=== PATIENT | male | born 2000 | race Caucasian/White ===

== ENCOUNTER 2022-02-12 21:48 | Day surgery (SDC) | payer BC, SELFPAY ==
[2022-02-12 22:01] VITALS: BP 121/77; PULSE 79; RESP 18; TEMP 37.2; O2SAT 99; BMI 21.6
[2022-02-12 22:19] LABS: Appearance Urine Clear (Clear); Bilirubin Urine Negative (Negative); Blood Urine Negative (Negative); Color Urine Yellow (Yellow); Glucose Urine Negative (Negative); Ketones Urine Negative (Negative); Leukocyte Esterase Urine Negative (Negative); Nitrite Urine Negative (Negative); Protein Urine Negative (Negative); Urobilinogen Urine 0.2 (0.2-1.0)
--- NOTE | 2022-02-12 22:32 | ED_ITS ---
HPI - Abdominal Pain General Chief Complaint: Abdominal Pain Stated Complaint: R side abdominal pain Time Seen by Provider: 02/12/22 22:25 History of Present Illness HPI narrative: 21-year-old young man generally healthy with complaint of abdominal pain increasing over the course of the day after lunch now about 10 hours of pain. Initially began maybe just a little bit above his umbilicus and has gone now down to his right low abdomen. Transitions, walking cause pain. Nausea has i ncreased over the course of the day. Sharp pain. No fever. No vomiting. He admits this might be confirmation bais but certainly appears to be appendicitis. No family history of kidney stones. No dysuria frequency urgency. No hematuria noted. Related Data Home Medications Medication Instructions Recorded Confirmed Aklief 02/12/22 ibuprofen 02/12/22 minocycline 02/12/22 Allergies Allergy/AdvReac Type Severity Reaction Status Date / Time No Known Drug Allergies Allergy Verified 02/12/22 23:14 Review of Systems Status of ROS Reports: 10 or more systems reviewed and unremarkable except as noted in History and below PFSH PFSH Medical History Seizures Surgical History Hx of tonsillectomy Family History Mother Asthma Social History Highest level of school completed/degree received: 12th grade, no diploma Smoking Status: Never smoker Do you use any of these nicotine containing products: None Second hand tobacco smoke exposure: No How often do you have a drink containing alcohol: 2-4 times a month Alcohol type: wine How many standard drinks containing alcohol do you have on a typical day: 1 or 2 How often do you have six or more drinks on one occasion: Never AUDIT-C Alcohol total score: 2 Non-prescribed substance use: denies use Caffeine: Yes (occasional pop or coffee) service: No Exam Narrative: Exam Narrative: Pleasant. NAD. Face a little flushed. Slim. Well-nourished. Cranial nerves 2-12 intact. Moving all extremities without difficulty. Well perfused peripherally. Breathing easily. Lungs clear Cardiovascular with regular rate and rhythm without murmur rub or gallop. Abdomen is flat. Moderately sore to palpation and guarding in the right lower quadrant - above McBurney's. Tender to percussion in the right flank as well Skin warm and dry without rash. Const: Vital Signs, click to edit/add: Vital Signs - 24 hr 02/12/22 22:01 02/12/22 23:01 02/13/22 00:01 Temperature 99.0 F Pulse Rate [Left P ulse Oximeter] 79 80 72 Respiratory Rate 18 16 16 Blood Pressure [Ri ght Upper Arm] 121/77 135/72 118/72 Pulse Oximetry 99 99 99 Oxygen Delivery Me thod Room Air Room Air Room Air Documenting provider has reviewed patient's vital signs: yes Course Reevaluation(s) Reevaluation #1: Given IV fluids morphine Zofran. Improved. Consultations Consultation #1: Spoke with our surgeon Dr. Londono. Is accepting admission, anticipating rewinder operator helper surgery. Vital Signs Vital signs: Initial Vital Signs Temperature 99.0 F 02/12/22 22:01 Temperature Source Temporal Artery Scan 02/12/22 22:01 Pulse Rate 79 02/12/22 22:01 Respiratory Rate 18 02/12/22 22:01 Blood Pressure 121/77 02/12/22 22:01 Blood Pressure Mean 91 02/12/22 22:01 Blood Pressure Position Sitting 02/12/22 22:01 Pulse Oximetry 99 02/12/22 22:01 Oxygen Delivery Method 02/12/22 22:01 Vital Signs Temperature 99.0 F 02/12/22 22:01 Pulse Rate 79 02/12/22 22:01 Respiratory Rate 18 02/12/22 22:01 Blood Pressure 121/77 02/12/22 22:01 Pulse Oximetry 99 02/12/22 22:01 Oxygen Delivery Method 02/12/22 22:01 Temperature 97.5 F L 02/13/22 05:20 Pulse Rate 75 02/13/22 05:20 Respiratory Rate 16 02/13/22 05:20 Blood Pressure 111/59 L 02/13/22 05:20 Pulse Oximetry 99 02/13/22 05:20 Oxygen Delivery Method 02/13/22 05:20 MDM - Abdominal Pain MDM Narrative Medical decision making narrative: Urinalysis is clear with the time I'm seeing [place]. CT abdomen pelvis ordered with labs as well. Think appendicitis leading diagnosis would need to rule that out. White count little bit elevated history over 11,000. CT scan reviewed by me shows inflammatory changes in the mid abdomen looks like outline of appendix-high and retrocecal I think. This is confirmed in conversation with Radiology later. Lab Data Attestation: I reviewed the patient's lab results. Labs: Lab Results 02/12/22 02/12/22 02/12/22 Range/Units 22:08 22:47 22:47 WBC 11.36 H (4.50-11.00) K/uL RBC 4.73 (4.30-5.90) m/uL Hgb 14.5 (13.5-17.5) gm/dL Hct 41.6 (37.0-53.0) % MCV 88 (80-100) fL MCH 31 (26-34) pg MCHC 35 (32-36) gm/dL RDW Coeff of Lucia 12.3 (11.5-15.5) % Plt Count 172 (140-440) K/uL Neut % (Auto) 72.4 H (42.0-72.0) % Lymph % (Auto) 18.5 L (20-44) % Angelina % (Auto) 8.0 (0.0-11.0) % Eos % (Auto) 0.4 (0.0-7.0) % Baso % (Auto) 0.3 (0.0-3.0) % Neut # (Auto) 8.20 H (1.7-7.0) K/uL Lymph # (Auto) 2.10 (0.90-2.90) K/uL Angelina # (Auto) 0.90 (0.00-0.90) K/UL Eos # (Auto) 0.00 (0.00-0.50) K/uL Baso # (Auto) 0.00 (0.00-0.30) K/uL Abs Immat Gran (auto) 0.05 (0.00-0.30) K/uL Sodium 138 (135-149) mmol/L Potassium 4.0 (3.6-5.1) mmol/L Chloride 101 (96-114) mmol/L Carbon Dioxide 28 (20-32) mmol/L BUN 13 (5-24) mg/dL Creatinine 0.9 (0.5-1.5) mg/dL Estimated Creat Clear 129.11 Estimated GFR 125 ml/min Glucose 97 (60-115) mg/dL Calcium 9.3 (8.4-10.6) mg/dL Total Bilirubin 0.7 (0.1-1.5) mg/dL Direct Bilirubin 0.3 (0.0-0.5) mg/dL AST 25 (12-35) U/L ALT 25 (4-50) U/L Alkaline Phosphatase 64 (40-150) U/L C-Reactive Protein 0.7 (0.5-1.0) mg/dL Total Protein 7.0 (6.0-8.3) g/dL Albumin 4.7 (3.3-5.0) g/dL Urine Color Yellow (Yellow) Urine Appearance Clear (Clear) Urine pH 6.0 (5.0-8.5) Ur Specific [place] 1.010 (1.000-1.030) Urine Protein Negative (Negative) Urine Glucose (UA) Negative (Negative) Urine Ketones Negative (Negative) Urine Blood Negative (Negative) Urine Nitrite Negative (Negative) Urine Bilirubin Negative (Negative) Urine Urobilinogen 0.2 (0.2-1.0) Ur Leukocyte Esterase Negative (Negative) SARS-CoV-2 (PCR) (Negative) 02/12/22 Range/Units 22:47 WBC (4.50-11.00) K/uL RBC (4.30-5.90) m/uL Hgb (13.5-17.5) gm/dL Hct (37.0-53.0) % MCV (80-100) fL MCH (26-34) pg MCHC (32-36) gm/dL RDW Coeff of Lucia (11.5-15.5) % Plt Count (140-440) K/uL Neut % (Auto) (42.0-72.0) % Lymph % (Auto) (20-44) % Angelina % (Auto) (0.0-11.0) % Eos % (Auto) (0.0-7.0) % Baso % (Auto) (0.0-3.0) % Neut # (Auto) (1.7-7.0) K/uL Lymph # (Auto) (0.90-2.90) K/uL Angelina # (Auto) (0.00-0.90) K/UL Eos # (Auto) (0.00-0.50) K/uL Baso # (Auto) (0.00-0.30) K/uL Abs Immat Gran (auto) (0.00-0.30) K/uL Sodium (135-149) mmol/L Potassium (3.6-5.1) mmol/L Chloride (96-114) mmol/L Carbon Dioxide (20-32) mmol/L BUN (5-24) mg/dL Creatinine (0.5-1.5) mg/dL Estimated Creat Clear Estimated GFR ml/min Glucose (60-115) mg/dL Calcium (8.4-10.6) mg/dL Total Bilirubin (0.1-1.5) mg/dL Direct Bilirubin (0.0-0.5) mg/dL AST (12-35) U/L ALT (4-50) U/L Alkaline Phosphatase (40-150) U/L C-Reactive Protein (0.5-1.0) mg/dL Total Protein (6.0-8.3) g/dL Albumin (3.3-5.0) g/dL Urine Color (Yellow) Urine Appearance (Clear) Urine pH (5.0-8.5) Ur Specific [place] (1.000-1.030) Urine Protein (Negative) Urine Glucose (UA) (Negative) Urine Ketones (Negative) Urine Blood (Negative) Urine Nitrite (Negative) Urine Bilirubin (Negative) Urine Urobilinogen (0.2-1.0) Ur Leukocyte Esterase (Negative) SARS-CoV-2 (PCR) Negative SARS-CoV-2 (Negative) Discharge Plan Discharge Clinical Impression: Acute appendicitis Patient Disposition: Admitted As Inpatient Condition: Stable
--- NOTE | 2022-02-12 22:33 | CRLHL7_ITS ---
For Patients: As a result of the Century Cures Act, medical imaging exams and procedure reports are released immediately into your electronic medical record. You may view this report before your referring provider. If you have questions, please contact your health care provider. INDICATION: Right lower quadrant abdominal pain. TECHNIQUE: CT abdomen and pelvis acquired with 76 cc Isovue 370 IV contrast. COMPARISON: None. FINDINGS: Lower chest: Unremarkable. Liver: Unremarkable. Normal in size and attenuation. No suspicious masses. Gallbladder and bile ducts: Unremarkable. No stones or inflammation. No biliary dilatation. Pancreas: Unremarkable. No mass or inflammation. Spleen: Unremarkable. Normal in size. No masses. Adrenal glands: Unremarkable. No nodules. Kidneys: Unremarkable. No suspicious masses, stones, or hydronephrosis. GI tract: Normal in caliber. No sign of mass or inflammation. The appendix is retrocecal, coursing superior, mildly dilated, measuring approximately 8 millimeters with hyperemia and mild surrounding inflammatory stranding (series 2, image 77). Vasculature: Abdominal aorta is normal in caliber. Mesenteric arteries are patent. Lymph nodes: Mild reactive right lower quadrant lymph nodes. Peritoneum/Abdominal Wall: Unremarkable. No sign of mass or infiltration. No free air or significant free fluid. Pelvis: Unremarkable. Bones: Unremarkable for age. IMPRESSION: Finding suggestive of early acute uncomplicated appendicitis. No drainable fluid collections. These findings were discussed with Dr. Davenport at 9:50 p.m. on 02/12/2022. Please note that all CT scans at this facility use dose modulation, iterative reconstruction, and/or weight-based dosing when appropriate to reduce radiation dose to as low as reasonably achievable. Dictated by Dave Love MD @ 02/12/2022 11:57:19 PM (Electronically Signed)
[2022-02-12] MEDS: ONDANSETRON 2 MG/ML inj 4 MG IVP (22:52)
[2022-02-12] MEDS: MORPHINE 4 MG/ML INJ IVP (22:52)
[2022-02-12] MEDS: 0.9 % SODIUM CHLORIDE 1000 ml 1,000 ML IV (22:53)
[2022-02-12 23:01] VITALS: BP 135/72; PULSE 80; RESP 16; O2SAT 99
[2022-02-12 23:11] LABS: Basophils Percent Auto 0.3 % (0.0-3.0); Eosinophils Percent Auto 0.4 % (0.0-7.0); Hematocrit 41.6 % (37.0-53.0); Hemoglobin* 14.5 gm/dL (13.5-17.5); Immature Granulocytes Abs Auto 0.05 K/uL (0.00-0.30); Lymphocytes Percent Auto 18.5 % (20-44); Mean Corpuscular HGB Conc 35 gm/dL (32-36); Mean Corpuscular Hemoglobin 31 pg (26-34); Mean Corpuscular Volume 88 fL (80-100); Neutrophils Percent Auto 72.4 % (42.0-72.0); Platelet Count* 172 K/uL (140-440); RDW Coefficient of Variation % 12.3 % (11.5-15.5); Red Blood Count 4.73 m/uL (4.30-5.90); White Blood Count* 11.36 K/uL (4.50-11.00)
[2022-02-12 23:13] LABS: Slide Review Reflex No
[2022-02-12 23:20] LABS: Albumin* 4.7 g/dL (3.3-5.0); Chloride* 101 mmol/L (96-114); Sodium* 138 mmol/L (135-149)
[2022-02-12 23:22] LABS: Creatinine* 0.9 mg/dL (0.5-1.5); Est. Creatinine Clearance* 129.11; Estimated Glomerular Filt Rate 125 ml/min
[2022-02-12 23:23] LABS: Alanine Aminotransferase* 25 U/L (4-50); Alkaline Phosphatase* 64 U/L (40-150); Aspartate Amino Transferase* 25 U/L (12-35); Bilirubin Direct* 0.3 mg/dL (0.0-0.5); Bilirubin Total* 0.7 mg/dL (0.1-1.5); Blood Urea Nitrogen* 13 mg/dL (5-24); Calcium* 9.3 mg/dL (8.4-10.6); Carbon Dioxide* 28 mmol/L (20-32); Glucose* 97 mg/dL (60-115)
[2022-02-12 23:26] LABS: C Reactive Protein* 0.7 mg/dL (0.5-1.0)
[2022-02-12 23:41] LABS: SARS PCR* Negative SARS-CoV-2 (Negative)
[2022-02-13] VITALS (16 sets, daily range): BP systolic 111–142; BP diastolic 59–99; PULSE 58–94; RESP 14–18; TEMP 36.2–36.7; O2SAT 98–100; BMI 22.4
[2022-02-13] MEDS: PIPERACILLIN/TAZOBACTAM 3.375 GM in 0.9 % SODIUM CHLORIDE Mini-bag 100 ML IVPB ×2 (00:32→06:20)
[2022-02-13] MEDS: LACTATED RINGERS 1000 ML 1,000 ML 100 ML IV ×2 (01:45→06:40)
--- NOTE | 2022-02-13 05:34 | PC.NURSE ---
Shift note [id number]: Pt admitted to 260 from ED via W/C @ 0130 dx: appendicitis, accompanied by friend Sanjana. Admission complete, oriented to unit, questions answered, and pre-op teaching completed. Rating pain 3-4/10, denied need for pain intervention. Up to void @ 0515, awaiting visit from OR staff, sx planned for 0600.
--- NOTE | 2022-02-13 06:01 | P.GSCN_ITS ---
History of Present Illness Consult details Date Seen: 02/13/22 Consult date: 02/13/22 Narrative: Patient is an otherwise healthy 21-year-old male, who presented to the emergency department last night with persistent right lower quadrant abdominal pain. He states the pain started around 11 30 am. He has never had pain like this before. It did radiate slightly to his back. The pain has persisted throughout the night. He denies any associated nausea or vomiting. Does report a decrease in appetite. No reported diarrhea or constipation. No fevers or chills. He has never had abdominal surgery before. He does have a history of a tonsillectomy, with no reported problems with anesthesia, bleeding or blood clots. Review of Systems Status of ROS: Reports: 10 or more systems reviewed and unremarkable except as noted in History and below [facility] Medical History Seizures Surgical History Hx of tonsillectomy Family History Mother Asthma Social History Highest level of school completed/degree received: 12th grade, no diploma Smoking Status: Never smoker Do you use any of these nicotine containing products: None Second hand tobacco smoke exposure: No How often do you have a drink containing alcohol: 2-4 times a month Alcohol type: wine How many standard drinks containing alcohol do you have on a typical day: 1 or 2 How often do you have six or more drinks on one occasion: Never AUDIT-C Alcohol total score: 2 Non-prescribed substance use: denies use Caffeine: Yes (occasional pop or coffee) service: No Meds Home Medications and Allergies Home Medications Medication Instructions Recorded Confirmed Type Aklief 02/12/22 History ibuprofen 02/12/22 History minocycline 02/12/22 History Allergies Allergy/AdvReac Type Severity Reaction Status Date / Time No Known Drug Allergies Allergy Verified 02/12/22 23:14 Exam Narrative: Exam Narrative: General: Alert and oriented, no acute distress. Nontoxic in appearance. Respiratory: Equal breath rise bilaterally, maintained on room air CV: Regular rhythm rate Abdomen: Soft, nondistended, tender to deep palpation right lower quadrant with some guarding. Const: Vital Signs, click to edit/add: Vital Signs - 24 hr 02/12/22 22:01 02/12/22 23:01 02/13/22 00:01 Temperature 99.0 F Pulse Rate [Left P ulse Oximeter] 79 80 72 Pulse Rate [Pulse Oximeter] Respiratory Rate 18 16 16 Blood Pressure [Ri ght Arm] Blood Pressure [Ri ght Upper Arm] 121/77 135/72 118/72 Pulse Oximetry 99 99 99 Oxygen Delivery Me thod Room Air Room Air Room Air 02/13/22 01:40 02/13/22 01:40 02/13/22 05:20 Temperature 98.1 F 98.1 F 97.5 F L Pulse Rate [Left P ulse Oximeter] Pulse Rate [Pulse Oximeter] 68 68 75 Respiratory Rate 18 18 16 Blood Pressure [Ri ght Arm] 120/66 120/66 111/59 L Blood Pressure [Ri ght Upper Arm] Pulse Oximetry 98 98 99 Oxygen Delivery Me thod Room Air Room Air Room Air Results Labs Labs: Abnormal lab results 02/12/22 Range/Units 22:47 WBC 11.36 H (4.50-11.00) K/uL Neut % (Auto) 72.4 H (42.0-72.0) % Lymph % (Auto) 18.5 L (20-44) % Neut # (Auto) 8.20 H (1.7-7.0) K/uL Diabetes panel 02/12/22 Range/Units 22:47 Sodium 138 (135-149) mmol/L Potassium 4.0 (3.6-5.1) mmol/L Chloride 101 (96-114) mmol/L Carbon Dioxide 28 (20-32) mmol/L BUN 13 (5-24) mg/dL Creatinine 0.9 (0.5-1.5) mg/dL Glucose 97 (60-115) mg/dL Calcium 9.3 (8.4-10.6) mg/dL AST 25 (12-35) U/L ALT 25 (4-50) U/L Alkaline Phosphatase 64 (40-150) U/L Total Protein 7.0 (6.0-8.3) g/dL Albumin 4.7 (3.3-5.0) g/dL Calcium panel 02/12/22 Range/Units 22:47 Calcium 9.3 (8.4-10.6) mg/dL Albumin 4.7 (3.3-5.0) g/dL Pituitary panel 02/12/22 Range/Units 22:47 Sodium 138 (135-149) mmol/L Potassium 4.0 (3.6-5.1) mmol/L Chloride 101 (96-114) mmol/L Carbon Dioxide 28 (20-32) mmol/L BUN 13 (5-24) mg/dL Creatinine 0.9 (0.5-1.5) mg/dL Glucose 97 (60-115) mg/dL Calcium 9.3 (8.4-10.6) mg/dL Adrenal panel 02/12/22 Range/Units 22:47 Sodium 138 (135-149) mmol/L Potassium 4.0 (3.6-5.1) mmol/L Chloride 101 (96-114) mmol/L Carbon Dioxide 28 (20-32) mmol/L BUN 13 (5-24) mg/dL Creatinine 0.9 (0.5-1.5) mg/dL Glucose 97 (60-115) mg/dL Calcium 9.3 (8.4-10.6) mg/dL Total Bilirubin 0.7 (0.1-1.5) mg/dL AST 25 (12-35) U/L ALT 25 (4-50) U/L Alkaline Phosphatase 64 (40-150) U/L Total Protein 7.0 (6.0-8.3) g/dL Albumin 4.7 (3.3-5.0) g/dL All other labs normal. Imaging Abdomen CT scan report/results: report reviewed and image reviewed Assessment and Plan Assessment and plan (1) Acute appendicitis: Status: Acute Plan The patient presented with a history, exam and imaging findings consistent with acute appendicitis. I discussed the treatment options with the patient including non-surgical and surgical options. I recommended laparoscopic appendectomy. The risks of surgery were reviewed with the patient including the risks of bleeding, post-operative wound or intra-abdominal infection, injury to abdominal structures and possible conversion to an open operation. We also discussed anesthetic complications including GA, stroke, respiratory failure and blood clots. The patient voiced an understanding of our conversation, had the opportunity to ask questions, agreed to accept the risks of surgery and asked that we proceed with surgery. -OR for laparoscopic appendectomy
--- NOTE | 2022-02-13 06:03 | PC.NURSE ---
Pt left for OR @ 6944.
--- NOTE | 2022-02-13 06:43 | W.PM.NB ---
Nerve Block Nerve Block Time Seen by Provider: 06:15 Date Seen: 02/13/22 Type of block requested by surgeon for post-operative analgesia: TAP Side: bilateral Time out performed: Yes Verification of patient name: Yes Verification of date of : Yes Site marking: site marked Name of person performing procedure: Be Laureano Continuous monitoring Was continuous monitoring of O2 sat, B/P, cardiac sonographer, recorded every 15 minutes?: Yes Procedure Checklist: sterile prep, needles and gloves Ultrasound guided. Images saved: Yes Medications given in 5ml increments after negative aspiration: Marcaine %: 0.25 mL: 30 Needle gauge: 20 and Exparel mL: 10 Needle gauge: 20 Patient tolerated procedure well: Yes Additional comments: Injected in 5ml increments after negative aspiration Block Charges Block Charge (with Pro Fee): TAP Unilateral Use of Ultrasound Machine for Block: Yes- US Guidance/pain block
[2022-02-13] MEDS: BUPIVACAINE 0.25% 30 ML INJECTION (07:50)
--- NOTE | 2022-02-13 08:01 | P.GSOP_ITS ---
Operative Note Date of procedure: 02/13/22 Type of Procedure: Laparoscopic appendectomy Procedure Description: After discussing the risks and benefits of the procedure, the patient signed informed consent.? The operative site was marked and the patient was brought to the operating room and placed on the operating table in supine position.? Care was taken to pad the patient's pressure points.?? The patient was then intubated by anesthesia.? A tap block was placed.? The operative site was then prepped and draped in the usual sterile fashion.? A time-out was then performed. ? Entrance to the abdomen was obtained via a 5 mm optical trocar in the left upper quadrant. The abdomen was insufflated and briefly surveyed for any signs of injury. There were none. A 12 mm port was placed lateral to the umbilicus as well as a 5 mm port in the left lower quadrant under direct vision. The patient was then placed in Trendelenburg position with the right side up. The small bowel was gently moved out of the way. The appendix was retrocecal and difficult to visualize. Dissection began along the left lateral wall, in order to mobilize the cecum. The base of the appendix was then visualized. The base of the appendix was dissected circumferentially and transected with a 45 mm vascular stapler load. The staple line was inspected for bleeding, with none seen. The body of the appendix was then dissected free starting from the base towards the tip. The mesenteric appendiceal artery was identified and doubly ligated with a 5 mm clip laboratory geneticist and transected. Once the appendix was completely free it was removed from the abdomen via the 12 mm port. The specimen was sent to pathology. The 12 mm port site fascia was closed with 0 Vicryl. The skin was then closed with absorbable subcuticular suture. Sterile dressings were then applied. Instrument sponge and needle counts were correct at the end of the case. The patient was then woken and transported to the PACU in stable condition. Sterile dressings were then applied. ? The patient was then woken and transported to the recovery area in stable condition. ? The patient tolerated the procedure well. Findings: Retrocecal appendix. Anesthesia: GETA Surgeon: Antonella Londono MD Estimated blood loss (mL): 5 Condition: stable Disposition: same day
--- NOTE | 2022-02-13 08:19 | W.PM.NB ---
Nerve Block Nerve Block Time Seen by Provider: 06:10 Date Seen: 02/13/22 Type of block requested by surgeon for post-operative analgesia: TAP Side: bilateral Time out performed: Yes Verification of patient name: Yes Verification of date of : Yes Site marking: site marked Name of person performing procedure: dmitriy Continuous monitoring Was continuous monitoring of O2 sat, B/P, director of cardiac cath lab, recorded every 15 minutes?: Yes Procedure Ultrasound guided. Images saved: Yes Medications given in 5ml increments after negative aspiration: Marcaine %: 0.25 mL: 30 Needle gauge: 20 and Exparel mL: 10 Patient tolerated procedure well: Yes Block Charges Block Charge (with Pro Fee): TAP Bilateral Use of Ultrasound Machine for Block: Yes- US Guidance/pain block
--- NOTE | 2022-02-13 08:22 | W.ANESCHARGE ---
Anesthesia Charges Start Date/Time Anesthesia Start Date: 02/13/22 Anesthesia Start Time: 06:06 Stop Date/Time Anesthesia Stop Date: 02/13/22 Anesthesia Stop Time: 08:15 Summary Emergency: Yes
[2022-02-13] MEDS: METOCLOPRAMIDE HCL 5 MG/ML INJ 10 MG IVP (08:48)
== END 2022-02-13 10:28 | disposition home or self-care (01) ==
LOC: ED 23:54 → MEDSURG 02-13 01:15 → SS 02-13 07:53
PROVIDERS: Surgery; Emergency Provider Family Medicine; Visit Provider Internal Medicine
PROC: 0DTJ4ZZ Resection of Appendix, Percutaneous Endoscopic Approach (ICD-10-PCS; CPT 44970; principal; 2022-02-13 06:00)
DX: K35.80 Unspecified acute appendicitis (principal)
CPT/HCPCS: 44970; 00840; 36415; 64486; 64488; 74177; 76942; 80048; 80076; 81001; 81003; 85025; 86140; 87635; 88304; 99140; 99284; 99285; C9290; J0330; J1100; J1885; J2270; J2405; J2543; J2704; J2765; J3010; J3490; J7030; J7120; Q9967